=== PATIENT | female | born 1990 | race Caucasian/White ===

== ENCOUNTER 2016-12-25 20:49 | Emergency (ER) | payer OTHER ==
--- NOTE | 2016-12-25 22:46 | DIAGNOSTIC IMAGING REPORT ---
PROCEDURE: XR SHOULDER 2 OR MORE VW-RIGHT INDICATION: TRAUMA/INJURY TECHNIQUE: Two views of the right shoulder COMPARISON: None. FINDINGS: Normal mineralization. Anterior inferior glenohumeral joint dislocation. No visible fractures, although post reduction imaging is recommended. The rib arcs and underlying lung appear normal. IMPRESSION: 1. Anterior inferior glenohumeral joint dislocation.
--- NOTE | 2016-12-25 23:29 | ED CLINICAL REPORT ---
Clinical Report - Physicians/Mid Levels [facility] [address] [place] [address] 12/25/2016 20:48 Patient: TORSTEN MAJOR Time Seen: 21:14 Dec 25 2016. Arrived- By private vehicle. Historian- patient. HISTORY OF PRESENT ILLNESS Chief Complaint: Injury to right shoulder. The injury happened just prior to arrival. Occurred at home. ( Patient is right-hand dominant, reports falling in the stairwell, and landing on her forearm and elbow primarily, now having pain and difficulty any movement with her right shoulder. Reports previous injury to the right shoulder, however has not had surgery for such. Patient denies taking any medications, incident occurred just 30 minutes prior to arrival. He denies any injury to her head or neck. Last ate 2 hours prior to Arrival.). REVIEW OF SYSTEMS No tingling or numbness. All systems otherwise negative, except as recorded above. PAST HISTORY The patient's dominant hand is the right. ADDITIONAL NOTES The nursing notes have been reviewed. PHYSICAL EXAM Vital Signs: 12/25/2016 21:11 BP: 105/57. HR: 67. RR: 17. O2 saturation: 100%. Temp: 97.9 F. Pain level now: 7/10. Appearance: Alert. Head: Head atraumatic. Neck: Normal inspection. Neck supple. CVS: Normal heart rate and rhythm. Heart sounds normal. Respiratory: No respiratory distress. Breath sounds normal. Extremities: Right clavicle area. No tenderness or swelling. Right shoulder: tenderness. Limited ROM due to pain (diminished flexion, extension and external rotation). Neurovascular intact distally. No swelling, laceration or abrasion. Right acromio-clavicular joint: tenderness. Right proximal humerus: tenderness and humerus: No tenderness or swelling. Neuro, Vascular and Tendons: Motor deficit present. Vascular deficit present. Tendon deficit present. LABS, X-RAYS, AND EKG Rt Shoulder X-ray: (IMPRESSION: 1. Anterior inferior glenohumeral joint dislocation. Electronically Final signed by:Dora Mendieta MD 12/25/2016 10:46:40 PM). Note - Tests: (Repeat xr: IMPRESSION: 1. Normal right shoulder. Electronically Final signed by:Jorge Calix MD 12/26/2016 12:11:47 AM). PROGRESS AND PROCEDURES PROCEDURES (R. sling for comfort: ns intact, stable post application). Course of Care: Patient here in the emergency Department with spontaneous resolution of her right shoulder dislocation. She was given IV Dilaudid, and then suddenly stated that her pain had improved. Repeat x-ray and exam to confirm this. No other signs of complications. No paresthesias. Patient is stable. Physical exam findings are improved. Symptoms better. Patient/family counseled. Disposition: Discharged. Condition: good. CLINICAL IMPRESSION Right anterior shoulder dislocation. Fall on same level by slipping. INSTRUCTIONS Apply ice. Wear simple sling for two weeks. (FOLLOW UP WITH ORTHOPEDICS). Prescription Medications: Ibuprofen 800 mg tablets: take 1 tablet orally every 8 hours for 3 days, as needed for pain. Dispense ten (10). No refill. Percocet 5 mg/325 mg: take 1 tablet orally every 6 hours as needed for pain. No refill. (#4) Follow-up: Follow up with your doctor in three days. (Electronically signed by Marlin Hinojosa P.A.-C 12/26/2016 0:59)
--- NOTE | 2016-12-25 23:29 | ED CLINICAL REPORT ---
Clinical Report - Physicians/Mid Levels [facility] [address] [place] [address] 12/25/2016 20:48 Patient: TORSTEN MAJOR Time Seen: 21:14 Dec 25 2016. Arrived- By private vehicle. Historian- patient. HISTORY OF PRESENT ILLNESS Chief Complaint: Injury to right shoulder. The injury happened just prior to arrival. Occurred at home. ( Patient is right-hand dominant, reports falling in the stairwell, and landing on her forearm and elbow primarily, now having pain and difficulty any movement with her right shoulder. Reports previous injury to the right shoulder, however has not had surgery for such. Patient denies taking any medications, incident occurred just 30 minutes prior to arrival. He denies any injury to her head or neck. Last ate 2 hours prior to Arrival.). REVIEW OF SYSTEMS No tingling or numbness. All systems otherwise negative, except as recorded above. PAST HISTORY The patient's dominant hand is the right. ADDITIONAL NOTES The nursing notes have been reviewed. PHYSICAL EXAM Vital Signs: 12/25/2016 21:11 BP: 105/57. HR: 67. RR: 17. O2 saturation: 100%. Temp: 97.9 F. Pain level now: 7/10. Appearance: Alert. Head: Head atraumatic. Neck: Normal inspection. Neck supple. CVS: Normal heart rate and rhythm. Heart sounds normal. Respiratory: No respiratory distress. Breath sounds normal. Extremities: Right clavicle area. No tenderness or swelling. Right shoulder: tenderness. Limited ROM due to pain (diminished flexion, extension and external rotation). Neurovascular intact distally. No swelling, laceration or abrasion. Right acromio-clavicular joint: tenderness. Right proximal humerus: tenderness and humerus: No tenderness or swelling. Neuro, Vascular and Tendons: Motor deficit present. Vascular deficit present. Tendon deficit present. LABS, X-RAYS, AND EKG Rt Shoulder X-ray: (IMPRESSION: 1. Anterior inferior glenohumeral joint dislocation. Electronically Final signed by:Dora Mendieta MD 12/25/2016 10:46:40 PM). Note - Tests: (Repeat xr: IMPRESSION: 1. Normal right shoulder. Electronically Final signed by:Jorge Calix MD 12/26/2016 12:11:47 AM). PROGRESS AND PROCEDURES PROCEDURES (R. sling for comfort: ns intact, stable post application). Course of Care: Patient here in the emergency Department with spontaneous resolution of her right shoulder dislocation. She was given IV Dilaudid, and then suddenly stated that her pain had improved. Repeat x-ray and exam to confirm this. No other signs of complications. No paresthesias. Patient is stable. Physical exam findings are improved. Symptoms better. Patient/family counseled. Disposition: Discharged. Condition: good. CLINICAL IMPRESSION Right anterior shoulder dislocation. Fall on same level by slipping. INSTRUCTIONS Apply ice. Wear simple sling for two weeks. (FOLLOW UP WITH ORTHOPEDICS). Prescription Medications: Ibuprofen 800 mg tablets: take 1 tablet orally every 8 hours for 3 days, as needed for pain. Dispense ten (10). No refill. Percocet 5 mg/325 mg: take 1 tablet orally every 6 hours as needed for pain. No refill. (#4) Follow-up: Follow up with your doctor in three days. (Electronically signed by Marlin Hinojosa P.A.-C 12/26/2016 0:59)
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
--- NOTE | 2016-12-25 23:29 | ED ORDER SUMMARY ---
..... Patient: TORSTEN MAJOR OrderSheet [facility] VisitID: [id number] [address] [place] [address] 26y, F Registration Date/Time: 12/25/2016 ORDER SHEET Weight: 65.7 kg (stated) Allergies: None GENERAL ORDERS: Shoulder 2V or more Right Urgent (21:22 12/25/2016 EKoroleva P.A.-C) (Ack 21:25 SRedmond) (21:46 KPage-Kuchan R.N.) Shoulder 2V or more Right Urgent (23:03 12/25/2016 EKoroleva P.A.-C) (Ack 23:04 SRedmond) (23:33 GUnger) Sling - arm (23:28 12/25/2016 EKoroleva P.A.-C) (23:53 KPage-Kuchan R.N.) MEDICATION ORDERS: Hydrocodone-APAP PO 5/325 mg (NOW, HIGH ALERT MEDICATION) (21:34 12/25/2016 EKoroleva P.A.-C) (21:55 KPage-Kuchan R.N.) (Cancelled: Other22:06 EKoroleva P.A.-C) Motrin PO 800 mg (NOW) (21:35 12/25/2016 EKoroleva P.A.-C) (21:55 KPage-Kuchan R.N.) IV FLUIDS: IV Saline Lock (22:05 12/25/2016 EKoroleva P.A.-C) (22:33 KPage-Kuchan R.N.) Dilaudid IV 1 mg (HIGH ALERT MEDICATION, NOW) (22:05 12/25/2016 EKoroleva P.A.-C) (22:44 KPage-Kuchan R.N.) ORDER SHEET NOTES: [Electronically signed by Marlin HinojosaA.-C (00:59 12/26/2016)] [Electronically signed by Naga Carrasco R.N. (01:39 12/26/2016)] [Electronically locked/signed by Naga Carrasco R.N. (01:39 12/26/2016)]
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
--- NOTE | 2016-12-25 23:29 | ED ORDER SUMMARY ---
..... Patient: TORSTEN MAJOR OrderSheet [facility] VisitID: [id number] [address] [place] [address] 26y, F Registration Date/Time: 12/25/2016 ORDER SHEET Weight: 65.7 kg (stated) Allergies: None GENERAL ORDERS: Shoulder 2V or more Right Urgent (21:22 12/25/2016 EKoroleva P.A.-C) (Ack 21:25 SRedmond) (21:46 KPage-Kuchan R.N.) Shoulder 2V or more Right Urgent (23:03 12/25/2016 EKoroleva P.A.-C) (Ack 23:04 SRedmond) (23:33 GUnger) Sling - arm (23:28 12/25/2016 EKoroleva P.A.-C) (23:53 KPage-Kuchan R.N.) MEDICATION ORDERS: Hydrocodone-APAP PO 5/325 mg (NOW, HIGH ALERT MEDICATION) (21:34 12/25/2016 EKoroleva P.A.-C) (21:55 KPage-Kuchan R.N.) (Cancelled: Other22:06 EKoroleva P.A.-C) Motrin PO 800 mg (NOW) (21:35 12/25/2016 EKoroleva P.A.-C) (21:55 KPage-Kuchan R.N.) IV FLUIDS: IV Saline Lock (22:05 12/25/2016 EKoroleva P.A.-C) (22:33 KPage-Kuchan R.N.) Dilaudid IV 1 mg (HIGH ALERT MEDICATION, NOW) (22:05 12/25/2016 EKoroleva P.A.-C) (22:44 KPage-Kuchan R.N.) ORDER SHEET NOTES: [Electronically signed by Marlin HinojosaA.-C (00:59 12/26/2016)] [Electronically signed by Naga Carrasco R.N. (01:39 12/26/2016)] [Electronically locked/signed by Naga Carrasco R.N. (01:39 12/26/2016)]
--- NOTE | 2016-12-26 00:15 | DIAGNOSTIC IMAGING REPORT ---
PROCEDURE: XR SHOULDER 2 OR MORE VW-RIGHT INDICATION: TRAUMA/INJURY TECHNIQUE: Three views. COMPARISON: None. FINDINGS: Osseous structures and joint spaces are normal. IMPRESSION: 1. Normal right shoulder.
--- NOTE | 2016-12-26 01:39 | ED MAR SUMMARY ---
..... Medication Administration Record [facility] [address] [address] Patient: TORSTEN MAJOR Visit ID: [id number] 26y, F Weight: 65.7 kg Height/Length: 62 in BMI: 26.5 ALLERGIES: None Given 21:55 12/25/2016 Naga Carrasco, RLanceNLance Medication Administered: MOTRIN [PO], Dose: 800 mg PO. Medication Ordered: Motrin PO 800 mg (NOW). Given 22:44 12/25/2016 Naga Carrasco, R.N. Medication Administered: DILAUDID [IVP] (HYDROMORPHONE HCL PF), Dose: 1 mg IVP, Site: #1 left wrist. Medication Ordered: Dilaudid IV 1 mg (HIGH ALERT MEDICATION, NOW).
--- NOTE | 2016-12-26 01:39 | ED DISCHARGE INSTRUCTIONS ---
Patient: TORSTEN MAJOR General Instructions [facility] VisitID: [id number] [place] [address] 26y, F Registration Date/Time: 12/25/2016 Right anterior shoulder dislocation. Fall on same level by slipping. INSTRUCTIONS Apply ice. Wear simple sling for two weeks. (FOLLOW UP WITH ORTHOPEDICS). Prescription Medications: Ibuprofen 800 mg tablets: take 1 tablet orally every 8 hours for 3 days, as needed for pain. Dispense ten (10). No refill. Percocet 5 mg/325 mg: take 1 tablet orally every 6 hours as needed for pain. No refill. (#4) Follow-up: Follow up with your doctor in three days. ADDITIONAL INFORMATION Mechanical Fall You have had a fall today. It appears that the cause is mechanical. That means that you slipped, tripped or lost your balance. If your fall had been due to fainting or a seizure, further tests would be required. Home Care: Rest today and resume your normal activities when you are feeling back to normal. If you were injured during the fall, follow the advice from your doctor regarding care of your injury. You may use acetaminophen (Tylenol) or ibuprofen (Motrin, Advil) to control pain, unless another pain medicine was prescribed. [NOTE: If you have chronic liver or kidney disease or ever had a stomach ulcer or GI bleeding, talk with your doctor before using these medicines.] Fall Prevention: Was there anything that caused your fall that can be fixed, removed, or replaced? Make your home safe by keeping walkways clear of objects you may trip over. Use non-slip pads under rugs. Do not walk in poorly lit areas. Do not stand on chairs or wobbly ladders. Use caution when reaching overhead or looking upward. This position can cause a loss of balance. Be sure your shoes fit properly, have non-slip bottoms and are in good condition. Be cautious when going up and down curbs, and walking on uneven sidewalks. If your balance is poor, consider using a cane or walker. Stay as active as you can. Balance, flexibility, strength, and endurance all come from exercise. They all play a role in preventing falls. Follow Up with your doctor or as advised by our staff. Get Prompt Medical Attention if any of the following occur: Repeated mechanical falls, or unexplained falls Dizziness, fainting or seizure Severe headache Chest pain or shortness of breath Palpitations (very rapid or very slow or irregular heartbeat) Blood in vomit, stools (black or red color) Weakness of an arm or leg or one side of the face Difficulty with speech or vision Dislocation: Shoulder (Reduced) Dislocation of the shoulder joint occurs when a strong force tears the ligaments holding the joint together. This allows the bones to move apart and become stuck out of place. Once the joint is aligned again, it will take about six weeks for the ligaments to heal. Since this injury may weaken the ligaments, you are at risk of another dislocation with less force. Therefore, care should be taken to avoid a similar injury in the future. Shoulder dislocation is treated with a shoulder immobilizer (special type of arm sling). This keeps your arm close to your body to prevent a recurrent dislocation while the ligaments heal. After a few weeks, an exercise program may be started. This will gradually restore range of motion and strength at the shoulder and decrease the risk of another dislocation. Home Care: Until your next doctor visit, wear your shoulder immobilizer at all times . Do not take it off at night to sleep. It is possible to dislocate your arm again in your sleep. You may take it off to bathe or dress, but do not move your arm away from your body. Keep your arm in the same position that the sling was holding it in, until you reapply the sling again. During your next visit, ask your doctor how long you should wear the sling. Apply an ice pack (ice cubes in a plastic bag, wrapped in a towel) over the injured area for 20 minutes every 1-2 hours the first day. Continue with ice packs 3-4 times a day for the next two days, then as needed for the relief of pain and swelling. You may use acetaminophen (Tylenol) or ibuprofen (Motrin, Advil) to control pain, unless another pain medicine was prescribed. [NOTE: If you have chronic liver or kidney disease or ever had a stomach ulcer or GI bleeding, talk with your doctor before using these medicines.] No sports or P.E. until cleared by your doctor. Follow Up with your doctor within one week or as advised by our staff. Shoulder immobilizers and slings should not be worn continuously for more than a few weeks or you may lose some [id number] at the shoulder joint. If you have had repeated dislocations of the same shoulder, that means there has been permanent ligament damage. Ask the orthopedic doctor about surgery to prevent another dislocation. Get Prompt Medical Attention if any of the following occur: Another dislocation of your shoulder Increasing swelling or pain in the shoulder or arm Fingers become cold, blue, numb or tingly Sling A sling is designed to support your arm in a position of rest. It is used for injuries of the hand, forearm, upper arm, and shoulder. A shoulder that is immobilized too long can become stiff and lose range of motion. Follow up with your doctor as advised and do not use the sling longer than directed. Home Use: Leave the sling in place as long as directed by your doctor. Unless told otherwise, you may remove it when bathing, dressing, and when you go to sleep. The sling is adjustable. If it becomes loose, adjust it so that your forearm is horizontal (level with the ground). Your hand should be level with the elbow. Ibuprofen Oral tablet What is this medicine? IBUPROFEN (eye BYOO proe fen) is a non-steroidal anti-inflammatory drug (NSAID). It is used for dental pain, fever, headaches or migraines, osteoarthritis, rheumatoid arthritis, or painful monthly periods. It can also relieve minor aches and pains caused by a cold, flu, or sore throat. How should I use this medicine? Take this medicine by mouth with a glass of water. Follow the directions on the prescription label. Take this medicine with food if your stomach gets upset. Try to not lie down for at least 10 minutes after you take the medicine. Take your medicine at regular intervals. Do not take your medicine more often than directed. A special MedGuide will be given to you by the pharmacist with each prescription and refill. Be sure to read this information carefully each time. Talk to your inbound call center agent regarding the use of this medicine in children. Special care may be needed. What side effects may I notice from receiving this medicine? Side effects that you should report to your doctor or health healthcare economics manager as soon as possible: allergic reactions like skin rash, itching or hives, swelling of the face, lips, or tongue black or bloody stools, blood in the urine or in vomit breathing problems changes in vision chest pain general ill feeling or flu-like symptoms nausea or vomiting redness, blistering, peeling or loosening of the skin, including inside the mouth slurred speech or weakness on one side of the body stomach pain unexplained weight gain or swelling unusually weak or tired yellowing of eyes or skin Side effects that usually do not require medical attention (report to your doctor or health healthcare economics manager if they continue or are bothersome): constipation or diarrhea dizziness gas or heartburn stomach upset What may interact with this medicine? Do not take this medicine with any of the following medications: cidofovir ketorolac methotrexate pemetrexed This medicine may also interact with the following medications: alcohol aspirin diuretics lithium other drugs for inflammation like prednisone warfarin What if I miss a dose? If you miss a dose, take it as soon as you can. If it is almost time for your next dose, take only that dose. Do not take double or extra doses. Where should I keep my medicine? Keep out of the reach of children. Store at room temperature between 15 and 30 degrees C (59 and 86 degrees F). Keep container tightly closed. Throw away any unused medicine after the expiration date. What should I tell my health care provider before I take this medicine? They need to know if you have any of these conditions: asthma cigarette smoker drink more than 3 alcohol containing drinks a day heart disease or circulation problems such as heart failure or leg edema (fluid retention) high blood pressure kidney disease liver disease stomach bleeding or ulcers an unusual or allergic reaction to ibuprofen, aspirin, other NSAIDS, other medicines, foods, dyes, or preservatives or trying to get breast-feeding What should I watch for while using this medicine? Tell your doctor or healthcare professional if your symptoms do not start to get better or if they get worse. This medicine does not prevent heart attack or stroke. In fact, this medicine may increase the chance of a heart attack or stroke. The chance may increase with longer use of this medicine and in people who have heart disease. If you take aspirin to prevent heart attack or stroke, talk with your doctor or health healthcare economics manager. Do not take other medicines that contain aspirin, ibuprofen, or naproxen with this medicine. Side effects such as stomach upset, nausea, or ulcers may be more likely to occur. Many medicines available without a prescription should not be taken with this medicine. This medicine can cause ulcers and bleeding in the stomach and intestines at any time during treatment. Ulcers and bleeding can happen without warning symptoms and can cause . To reduce your risk, do not smoke cigarettes or drink alcohol while you are taking this medicine. You may get drowsy or dizzy. Do not drive, use machinery, or do anything that needs mental alertness until you know how this medicine affects you. Do not stand or sit up quickly, especially if you are an older patient. This reduces the risk of dizzy or fainting spells. This medicine can cause you to bleed more easily. Try to avoid damage to your teeth and gums when you brush or floss your teeth. Oxycodone Hydrochloride, Acetaminophen Oral tablet What is this medicine? ACETAMINOPHEN; OXYCODONE (a set a DEVANG alo fen; ox i KOE done) is a pain reliever. It is used to treat mild to moderate pain. How should I use this medicine? Take this medicine by mouth with a full glass of water. Follow the directions on the prescription label. Take your medicine at regular intervals. Do not take your medicine more often than directed. Talk to your inbound call center agent regarding the use of this medicine in children. Special care may be needed. Patients over 65 years old may have a stronger reaction and need a smaller dose. What side effects may I notice from receiving this medicine? Side effects that you should report to your doctor or health healthcare economics manager as soon as possible: allergic reactions like skin rash, itching or hives, swelling of the face, lips, or tongue breathing difficulties, wheezing confusion light headedness or fainting spells severe stomach pain yellowing of the skin or the whites of the eyes Side effects that usually do not require medical attention (report to your doctor or health healthcare economics manager if they continue or are bothersome): dizziness drowsiness nausea vomiting What may interact with this medicine? alcohol antihistamines barbiturates like amobarbital, butalbital, butabarbital, methohexital, pentobarbital, phenobarbital, thiopental, and secobarbital benztropine drugs for bladder problems like solifenacin, trospium, oxybutynin, tolterodine, hyoscyamine, and methscopolamine drugs for breathing problems like ipratropium and tiotropium drugs for certain stomach or intestine problems like propantheline, homatropine methylbromide, glycopyrrolate, atropine, belladonna, and dicyclomine general anesthetics like etomidate, ketamine, nitrous oxide, propofol, desflurane, enflurane, halothane, isoflurane, and sevoflurane medicines for depression, anxiety, or psychotic disturbances medicines for sleep muscle relaxants naltrexone narcotic medicines (opiates) for pain phenothiazines like perphenazine, thioridazine, chlorpromazine, mesoridazine, fluphenazine, prochlorperazine, promazine, and trifluoperazine scopolamine tramadol trihexyphenidyl What if I miss a dose? If you miss a dose, take it as soon as you can. If it is almost time for your next dose, take only that dose. Do not take double or extra doses. Where should I keep my medicine? Keep out of the reach of children. This medicine can be abused. Keep your medicine in a safe place to protect it from theft. Do not share this medicine with anyone. Selling or giving away this medicine is dangerous and against the law. Store at room temperature between 20 and 25 degrees C (68 and 77 degrees F). Keep container tightly closed. Protect from light. This medicine may cause accidental overdose and if it is taken by other adults, children, or pets. Flush any unused medicine down the toilet to reduce the chance of harm. Do not use the medicine after the expiration date. What should I tell my health care provider before I take this medicine? They need to know if you have any of these conditions: brain tumor Crohn's disease, inflammatory bowel disease, or ulcerative colitis drink more than 3 alcohol containing drinks per day drug abuse or addiction head injury heart or circulation problems kidney disease or problems going to the bathroom liver disease lung disease, asthma, or breathing problems an unusual or allergic reaction to acetaminophen, oxycodone, other opioid analgesics, other medicines, foods, dyes, or preservatives or trying to get breast-feeding What should I watch for while using this medicine? Tell your doctor or health healthcare economics manager if your pain does not go away, if it gets worse, or if you have new or a different type of pain. You may develop tolerance to the medicine. Tolerance means that you will need a higher dose of the medication for pain relief. Tolerance is normal and is expected if you take this medicine for a long time. Do not suddenly stop taking your medicine because you may develop a severe reaction. Your body becomes used to the medicine. This does NOT mean you are addicted. Addiction is a behavior related to getting and using a drug for a non-medical reason. If you have pain, you have a medical reason to take pain medicine. Your doctor will tell you how much medicine to take. If your doctor wants you to stop the medicine, the dose will be slowly lowered over time to avoid any side effects. You may get drowsy or dizzy. Do not drive, use machinery, or do anything that needs mental alertness until you know how this medicine affects you. Do not stand or sit up quickly, especially if you are an older patient. This reduces the risk of dizzy or fainting spells. Alcohol may interfere with the effect of this medicine. Avoid alcoholic drinks. There are different types of narcotic medicines (opiates) for pain. If you take more than one type at the same time, you may have more side effects. Give your health care provider a list of all medicines you use. Your doctor will tell you how much medicine to take. Do not take more medicine than directed. Call emergency for help if you have problems breathing. The medicine will cause constipation. Try to have a bowel movement at least every 2 to 3 days. If you do not have a bowel movement for 3 days, call your doctor or health healthcare economics manager. Do not take Tylenol (acetaminophen) or medicines that have acetaminophen with this medicine. Too much acetaminophen can be very dangerous. Many nonprescription medicines contain acetaminophen. Always read the labels carefully to avoid taking more acetaminophen. You have been given the following additional information: Fall, Mechanical Dislocation: Shoulder (Reduced) Sling Ibuprofen Oral tablet Oxycodone Hydrochloride, Acetaminophen Oral tablet (Electronically signed by Marlin Hinojosa P.A.-C 12/26/2016 0:59)
--- NOTE | 2016-12-26 01:39 | ED MAR SUMMARY ---
..... Medication Administration Record [facility] [address] [place] [address] Patient: TORSTEN MAJOR Visit ID: [id number] 26y, F Weight: 65.7 kg Height/Length: 62 in BMI: 26.5 ALLERGIES: None Given 21:55 12/25/2016 Naga Carrasco, RLanceNLance Medication Administered: MOTRIN [PO], Dose: 800 mg PO. Medication Ordered: Motrin PO 800 mg (NOW). Given 22:44 12/25/2016 Naga Carrasco, R.N. Medication Administered: DILAUDID [IVP] (HYDROMORPHONE HCL PF), Dose: 1 mg IVP, Site: #1 left wrist. Medication Ordered: Dilaudid IV 1 mg (HIGH ALERT MEDICATION, NOW).
--- NOTE | 2016-12-26 01:39 | ED MED RECONCILIATION SUMMARY ---
Patient: TORSTEN MAJOR Medication Reconciliation Report [facility] VisitID: [id number] [address] [place] [address] 26y, F Registration Date/Time: 12/25/2016 Weight: 65.7 kg Height/Length: 62 in. BMI: 26.5 ALLERGIES: None The patient's Home Medications are listed below: NONE. The source(s) of the original Home Medication information: Not obtained. The following Medications were given to the patient in the Emergency Department: Motrin [PO] PO 800 mg, administered: 12/25/2016 9:55:00 PM Dilaudid [IVP] IVP 1 mg, administered: 12/25/2016 10:44:00 PM The following Medications were prescribed to the patient: Ibuprofen 800 mg tablets: take 1 tablet orally every 8 hours for 3 days, as needed for pain. Dispense ten (10). No refill. -- Marlin Hinojosa, P.A.-Dasia Percocet 5 mg/325 mg: take 1 tablet orally every 6 hours as needed for pain. No refill.(#4) -- Marlin Hinojosa, P.A.-C
--- NOTE | 2016-12-26 01:39 | ED MED RECONCILIATION SUMMARY ---
Patient: TORSTEN MAJOR Medication Reconciliation Report [facility]erg[facility] VisitID: [id number] [address] [place] [address] 26y, F Registration Date/Time: 12/25/2016 Weight: 65.7 kg Height/Length: 62 in. BMI: 26.5 ALLERGIES: None The patient's Home Medications are listed below: NONE. The source(s) of the original Home Medication information: Not obtained. The following Medications were given to the patient in the Emergency Department: Motrin [PO] PO 800 mg, administered: 12/25/2016 9:55:00 PM Dilaudid [IVP] IVP 1 mg, administered: 12/25/2016 10:44:00 PM The following Medications were prescribed to the patient: Ibuprofen 800 mg tablets: take 1 tablet orally every 8 hours for 3 days, as needed for pain. Dispense ten (10). No refill. -- Marlin Hinojosa, P.A.-Dasia Percocet 5 mg/325 mg: take 1 tablet orally every 6 hours as needed for pain. No refill.(#4) -- Marlin Hinojosa, P.A.-C
== END 2016-12-25 23:58 | disposition home or self-care (01) ==
LOC: ED SRH 20:49
DX: S43.014A Anterior dislocation of right humerus, initial encounter (principal); W10.9XXA Fall (on) (from) unspecified stairs and steps, initial encounter; Y93.9 Activity, unspecified; Y92.009 Unspecified place in unspecified non-institutional (private) residence as the place of occurrence of the external cause; Y99.9 Unspecified external cause status; F17.210 Nicotine dependence, cigarettes, uncomplicated; F12.10 Cannabis abuse, uncomplicated